=== PATIENT | female | born 2005 | race African-American/Black ===

== ENCOUNTER 2024-11-01 15:17 | Outpatient (CLI) | payer OTHER, SELFPAY ==
--- NOTE | ~2024-11-01 | US_ITS ---
EXAMINATION: US OB /maternal detail DATE: 11/01/2024 15:57 INDICATION: Encounter for supervision of other normal . TECHNIQUE: Real-time ultrasound of the pelvis was performed. COMPARISON: None. FINDINGS: There is a single living fetus in vertex presentation. The placenta is fundal, 8.1 cm from the cervi x. The cervical length is 3.2 cm on transabdominal images, which is normal. heart rate is 143 b eats per minute (bpm). The amniotic fluid volume is subjectively normal. The following biometric data were obtained: Biparietal diameter (BPD): 4.6 cm; head circumference (HC): 17.3 cm; abdominal circumference (AC): 14 .9 cm; femur length (FL): 3.0 cm. These measurements are concordant. Estimated weight is 311 g +/- 47 g, which correlates with the 25th percentile when 03/20/25 is u sed as estimated date of delivery. As single measurements, these parameters are each equal to the following estimated gestational ages: BPD: 19 weeks 6 days. HC: 19 weeks 6 days. AC: 20 weeks 1 days. FL: 19 weeks 2 days. estimated gestational age based solely on measurements from this exam is 19 weeks 6 days +/- 1 weeks 3 days. The cerebral ventricles, cerebellum, cisterna magna, nuchal fold, lip, and spine are normal. The hear t is normal. The diaphragm, stomach, kidneys, and bladder are normal. There are two umbilical arterie s to yield a 3-vessel cord. The cord insertion is normal. IMPRESSION: 1. Single living fetus in vertex presentation. 2. Estimated weight is 311 g +/- 47 g, which correlates with the 25th percentile when 03/20/25 is used as estimated date of delivery. 3. Normal anatomic survey. Reviewed, dictated and finalized at location A. INUOUS IMPROVEMENT BLACK BELT IMPRESSION: 1. Single living fetus in vertex presentation. 2. Estimated weight is 311 g +/- 47 g, which correlates with the 25th pe rcentile when 03/20/25 is used as estimated date of delivery. 3. Normal anatomic survey.
== END 2024-11-01 15:18 | disposition home or self-care (01) ==
PROVIDERS: PCP Student in an Organized Health Care Education/Training Program; Visit Provider Student in an Organized Health Care Education/Training Program
DX: Z34.82 Encounter for supervision of other normal pregnancy, second trimester (principal); Z36.89 Encounter for other specified antenatal screening
CPT/HCPCS: 76805